=== PATIENT | female | born 1990 | race African-American/Black ===

== ENCOUNTER 2018-06-19 07:52 | Emergency (ER) | payer MEDICAID ==
[~2018-06-19] VITALS: Ht 170.2 cm; Wt 62.0 kg
[2018-06-19 10:58] VITALS: BP 130/73
== END 2018-06-19 10:59 | disposition home or self-care (01) ==
LOC: ER 08:08
DX: H00.031 Abscess of right upper eyelid (principal); L03.213 Periorbital cellulitis
CPT/HCPCS: 99282

== ENCOUNTER 2025-03-23 05:38 | Emergency (ER) | payer MEDICAID, OTHER ==
[~2025-03-23] VITALS: Ht 167.6 cm; Wt 73.0 kg
[2025-03-23 05:46] VITALS: O2SAT 100
[2025-03-23] MEDS: FAMOTIDINE 20MG/2ML VIAL IV ONE (06:30)
[2025-03-23] MEDS: DEXAMETHASONE 10 MG/ML VIAL IV ONE (06:30)
[2025-03-23] MEDS: DIPHENHYDRAMINE 50MG/ML VIAL IV ONE (06:30)
[2025-03-23] MEDS ORDERED: DIPH25CA83 PO (07:29)
[2025-03-23 07:46] VITALS: BP 128/76; PULSE 88; RESP 16; TEMP 36.6; O2SAT 100
== END 2025-03-23 07:47 | disposition home or self-care (01) ==
LOC: ER 05:38
DX: L50.9 Urticaria, unspecified (principal); F12.10 Cannabis abuse, uncomplicated
CPT/HCPCS: 96374; 96375; 99284; J1100; J1200; J3490; Z7610